=== PATIENT | male | born 1975 | race Caucasian/White ===

== ENCOUNTER 2023-06-25 07:29 | Outpatient (CLI) | payer BC, SELFPAY ==
[2023-06-25 07:44] LABS: Hematocrit 52.8 % (42.0-52.0); Hemoglobin 17.3 g/dL (14.0-18.0); Mean Corpuscular HGB Conc 32.8 g/dl (32-36); Mean Corpuscular Volume 88.6 fl (80-100); Mean Platelet Volume 9.3 fl (7.4-10.4); Platelet Count Result 246 k/mm3 (150-375); Red Blood Count 5.96 M/mm3 (4.6-6.20); Red Cell Distribution Width 12.9 % (11.5-14.5)
[2023-06-25 07:56] LABS: Alanine Aminotransferase 44 U/L (6-50); Albumin Level 4.2 g/dL (3.5-5.1); Alkaline Phosphatase 92 U/L (38-126); Anion Gap 2 mmol/L (8-16); Aspartate Amino Transferase 33 U/L (17-59); Bilirubin,Total 0.9 mg/dL (0.2-1.3); Blood Urea Nitrogen 18 mg/dL (9-20); Calcium 8.9 mg/dL (8.4-10.2); Carbon Dioxide 29 mmol/L (22-30); Chloride 101 mmol/L (98-107); Cholesterol 180 mg/dL (0-200); Estimated Glomerular Filt Rate > 60; Glucose 108 mg/dL (65-110); HDL Direct 39 mg/dL; Potassium 4.4 mmol/L (3.4-5.0); Sodium 132 mmol/L (137-145); Triglycerides 184 mg/dL (<150)
[2023-06-25 08:08] LABS: LDL Cholesterol Direct 97 mg/dL
[2023-06-25 08:26] LABS: Prostate Specific Antigen 0.8 ng/mL (< OR = 4.0)
== END 2023-06-25 07:30 | disposition home or self-care (01) ==
LOC: ANHLAB 07:31
PROVIDERS: PCP Family Medicine; Visit Provider Nurse Practitioner Family
DX: Z12.5 Encounter for screening for malignant neoplasm of prostate (principal); I10 Essential (primary) hypertension; R74.8 Abnormal levels of other serum enzymes; Z13.29 Encounter for screening for other suspected endocrine disorder
CPT/HCPCS: 36415; 80053; 80061; 84153; 84443; 85027

== ENCOUNTER 2024-03-20 11:05 | Observation (INO) | payer BC, SELFPAY ==
[2024-03-20] VITALS (14 sets, daily range): BP systolic 136–175; BP diastolic 83–127; PULSE 72–108; RESP 13–98; TEMP 35.6–36.8; O2SAT 20–100; BMI 42.4
--- NOTE | ~2024-03-20 | CT_ITS ---
CTA chest PE protocol Ordering provider: Jamal Avila MD History: 49 years Male with . Dyspena on exertion, new afib . Comparison: None. Technique: CT angiogram chest was performed following timed intravenous injection of contrast. Thin s lice axial images and reformatted coronal images were obtained. Three dimensional reformatted images of the chest were also obtained using a [employer] workstation. . Automated exposure control and iterati ve reconstruction technique were employed. The dose-length product was 1030.74 mGy-cm. 100 ML Omnipaq ue 350 was given IV. Findings: PULMONARY ARTERIES: No pulmonary embolism. VISUALIZED THORACIC INLET: Normal. MEDIASTINUM: Aorta/coronary arteries: The thoracic aorta is normal. Heart/other: The heart is not enlarged. Lymph nodes: Right hilar lymphadenopathy. Soft tissue density seen adjacent to the aortic arch which is not seen before and mesentery is present hematoma or lymphatic infiltration. This area measures 1 cm in thickness. LUNGS: No pulmonary nodules or masses. No infiltrates or effusions. No pneumothorax. Dependent atelectatic c hanges VISUALIZED UPPER ABDOMEN: , the visualized upper abdomen is normal. MUSCULOSKELETAL: Soft tissues: The superficial soft tissues are normal. Bones: Age appropriate degenerative changes of the spine. IMPRESSION: 1. No pulmonary embolism. 2. Right hilar lymphadenopathy 3. Prevascular soft tissue density which may be a hematoma or lymphatic infiltrate. Clinical correla tion and follow-up advised. Reviewed, dictated and finalized at location A. IMPRESSION: 1. No pulmonary embolism. 2. Right hilar lymphadenopathy 3. Prevascular soft tissue density which may be a hematoma or lymphatic infilt rate. Clinical correlation and follow-up advised.
--- NOTE | ~2024-03-20 | US_ITS ---
EXAMINATION: US venous doppler LE DATE: 03/20/2024 17:06 INDICATION: LE Edema. Elevated dimer . TECHNIQUE: Grayscale images without and with compression and Doppler images of the bilateral lower ex tremity veins were obtained. COMPARISON: None FINDINGS: The right common femoral vein, profunda (deep) femoral vein, femoral vein, popliteal vein, peroneal v ein, posterior tibial veins, and greater saphenous vein are patent. The left common femoral vein, profunda (deep) femoral vein, femoral vein, popliteal vein, peroneal v ein, posterior tibial veins, and greater saphenous vein are patent. IMPRESSION: Patent bilateral lower extremity veins. No evidence of deep venous thrombosis. Reviewed, dictated and finalized at location K.
--- NOTE | ~2024-03-20 | XR_ITS ---
EXAMINATION: XR chest 2V 03/20/2024 12:04 INDICATION: Chest palpitations. Hypertension. PROCEDURE: 2 view chest COMPARISON: Comparison to multiple prior studies sequentially, with oldest reviewed study dated 04/2016. FINDINGS: The lungs are clear. The cardiomediastinal silhouette is within normal limits. There are no pleural effusions. There is no pneumothorax suspected. IMPRESSION: 1: NO ACUTE CARDIOPULMONARY DISEASE. Reviewed, dictated and finalized at location B.
--- NOTE | 2024-03-20 11:07 | ECG_ITS ---
Test Date: 2024-03-20 11:12:43 Measurements Intervals [place] Rate: 87 P: 0 DC: 0 QRS: 52 QRSD: 110 T: 50 QT: 349 QTc: 421 Interpretive Statements ATRIAL FIBRILLATION INCOMPLETE RIGHT BUNDLE BRANCH BLOCK ABNORMAL ECG No previous ECG available for comparison Electronically Signed On 03-20-2024 11:49:41 CDT by Blaine Higginbotham D.O.
[2024-03-20 12:10] LABS: Basophils Percent Auto 0.4 % (0.2-1.2); Eosinophils Absolute Auto 0.2 K/mm3 (0-0.3); Eosinophils Percent Auto 2.5 % (0-4.4); Hematocrit 50.3 % (42.0-52.0); Hemoglobin 16.9 g/dL (14.0-18.0); Immature Granulocyte Absolute 0.03 K/mm3 (0.00-0.031); Immature Granulocyte Percent A 0.4 % (0-0.5); Lymphocytes Absolute Auto 1.51 K/mm3 (0.9-3.2); Lymphocytes Percent Auto 20.7 % (18.3-44.2); Mean Corpuscular HGB Conc 33.6 g/dl (32-36); Mean Corpuscular Hemoglobin 29.4 pg (26-34); Mean Corpuscular Volume 87.5 fl (80-100); Mean Platelet Volume 9.7 fl (7.4-10.4); Monocytes Absolute Auto 0.6 K/mm3 (0.1-0.6); Monocytes Percent Auto 7.5 % (2.6-8.5); Neutrophils Percent Auto 68.5 % (45.5-73.1); Platelet Count Result 198 k/mm3 (150-375); Red Blood Count 5.75 M/mm3 (4.6-6.20); Red Cell Distribution Width 12.9 % (11.5-14.5); White Blood Count 7.3 K/mm3 (4.5-10.0)
[2024-03-20 12:19] LABS: Alanine Aminotransferase 52 U/L (6-50); Albumin Level 4.2 g/dL (3.5-5.1); Alkaline Phosphatase 73 U/L (38-126); Anion Gap 9 mmol/L (4-12); Aspartate Amino Transferase 33 U/L (17-59); Bilirubin,Total 1.1 mg/dL (0.2-1.3); Blood Urea Nitrogen 14 mg/dL (9-20); Calcium 8.7 mg/dL (8.4-10.2); Carbon Dioxide 27 mmol/L (22-30); Chloride 100 mmol/L (98-107); Estimated CRCL calculation 185 ml/min; Estimated Glomerular Filt Rate > 60; Glucose 150 mg/dL (65-110); Lipase 49 U/L (23-300); Potassium 3.8 mmol/L (3.4-5.0); Sodium 136 mmol/L (137-145)
[2024-03-20 12:30] LABS: INR 1.1; Prothrombin Time 14.3 Seconds (11.1-14.7); Troponin I < 0.012 ng/mL (0.000-0.034)
[2024-03-20 12:31] LABS: Partial Thromboplastin Time 30.5 Seconds (22.3-36.8)
[2024-03-20 14:06] LABS: D Dimer 2.19 ug/mL (<0.48)
[2024-03-20 14:13] LABS: Amphetamine Screen Urine Negative (Negative); Barbiturate Screen Urine Negative (Negative); Benzodiazepines Screen Urine Negative (Negative); Cannabinoid Screen Urine Negative (Negative); Cocaine Screen Urine Negative (Negative); Methadone Screen Urine Negative (Negative); Opiate Screen Urine Negative (Negative); Phencyclidine Screen Urine Negative (Negative)
[2024-03-20 14:22] LABS: NT Pro B Type Natriuretic Pept 654 pg/mL (19.9-100)
[2024-03-20 14:50] LABS: Troponin I < 0.012 ng/mL (0.000-0.034)
[2024-03-20] MEDS: dilTIAZem HCl INJ 25 MG/5 ML VIAL 10 MG IV PUSH (16:02)
--- NOTE | 2024-03-20 16:03 | ED.GENADULT ---
HPI - General Adult General Chief complaint: Arrhythmia/Palpitations Stated complaint: SOB, hypertension, irregular HR Time Seen by Provider: 03/20/24 11:53 History of Present Illness HPI narrative: This is a 49-year-old male presenting with chest tightness, palpitations and dyspnea on exertion for last several days. Patient also notes that he has had worsening lower extremity edema. He was seen at his primary care office earlier today but then was sent to the ED because of an irregular heart rate. Patient denies fevers chills, productive cough, risk factors for DVT/PE or heart failure. Related Data Allergies Allergy/AdvReac Type Severity Reaction Status Date / Time hydrocodone AdvReac Unknown vomiting Verified 03/20/24 11:10 [facility] Past Medical History Medical History Atrial fibrillation Screening for prostate cancer Screening for thyroid disorder Family History Family History Mother Diabetes mellitus Family history of coronary artery disease Father Diabetes mellitus Family history of chronic obstructive pulmonary disease Family history of emphysema Sibling Lung cancer Social History Social History Smoking status: Never smoker Second hand tobacco smoke exposure: No Alcohol intake: never Substance use: never Substance use type: does not use Lack of Transportation: No Lack of Food: Never True Current Housing: I Have Housing Concerned About Future Housing: No Difficulty Paying Gas/Electric Bills: No Difficulty Paying for Meds: No Currently Unemployed: No Education: High School Diploma/GED Difficulty w/ Childcare or Family Care: No Living arrangements: with family Occupation/Education: occupation Additional occupation/education comments: [employer] Gender identity (if verbalized by the patient): Male Exam Narrative: APPEARANCE: No apparent distress. Head: atraumatic. EYES: EOMI, NOSE: Atraumatic NECK: Trachea midline RESPIRATORY: Tachypneic, clear lung sounds, no oxygen requirements CARDIOVASCULAR: Irregular, rapid, +1-2 pitting edema of the legs left worse than right ABDOMINAL: Non-distended MUSCULOSKELETAl: No obvious deformities NEURO: Alert. Moving 4/4 extremities SKIN:: Warm, dry. Normal color PSYCHIATRIC: Normal affect Course Vital Signs Vital signs: Vital Signs Temperature 97.8 F 03/20/24 11:08 Pulse Rate 108 H 03/20/24 11:08 Respiratory Rate 20 03/20/24 11:08 Blood Pressure 175/126 H 03/20/24 11:08 Pulse Oximetry 100 03/20/24 11:08 Oxygen Delivery Room Air 03/20/24 11:08 Temperature 98.0 F 03/20/24 15:30 Pulse Rate 88 03/20/24 15:30 Respiratory Rate 16 03/20/24 15:30 Blood Pressure 154/108 H 03/20/24 15:30 Pulse Oximetry 100 03/20/24 15:30 Oxygen Delivery Room Air 03/20/24 11:08 Medical Decision Making MDM Narrative Medical decision making narrative: -Course: 49-year-old male presenting with palpitations, chest tightness and dyspnea on exertion. Found to be in AFib with a rate ranging from 90-120. Patient given 1 dose of diltiazem with improvement in heart rate. D-dimer elevated 2.13. CT PE without evidence of pulmonary embolism. A soft tissue density was noted next to the aorta although this is of undetermined etiology or significance. Venous duplex of the legs are pending. Chads Vasc of 1. Patient given Lovenox. Patient has new onset atrial fibrillation. Patient be admitted to the hospital for Cardiology evaluation. -DDX includes but is not limited to: AFib, CHF, PE, pneumonia viral syndrome -Co-morbidities complicating care: Hypertension -Independent interpretation of studies: Labs reviewed Troponin undetectable x2. BNP 650. Dimer elevated at 2.2. CT PE: 1. No pulmonary embolism. 2. Right hilar lymphadenopathy
[2024-03-20] MEDS: ENOXAPARIN 40 MG/0.4 ML SYRINGE SUB-Q (17:40)
[2024-03-20] MEDS: ENOXAPARIN 100 MG/ML SYRINGE SUB-Q (17:40)
[2024-03-20 17:44] LABS: Troponin I 0.017 ng/mL (0.000-0.034)
--- NOTE | 2024-03-20 17:45 | PM.IMHP ---
H&P: HPI History of Present Illness Date/Time: 03/20/24 18:00 Chief Complaint: Irregular heart rhythm. Narrative: This is a pleasant 49-year-old male with hypertension, hyperlipidemia, transient atrial fibrillation in August 2019, obstructive sleep apnea intolerant to CPAP, morbid obesity, kidney stones, and gout who presented to the emergency department for evaluation of an irregular heart rhythm. The patient provides the following history. He has been out of his blood pressure medication for 2 months and had a standing appointment with his primary care provider yesterday to get it restarted. He was prescribed amlodipine 5 mg daily and was also given Augmentin for suspected dermatitis with possible underlying infection. He was previously on lisinopril but did not tolerated due to cough. Over the course of the last several days he has become increasingly fatigued with shortness of breath on exertion and occasional lightheadedness when bending over. These symptoms seem to have gotten worse since he restarted the medication yesterday and he went back to the office today for a blood pressure check. At that time his blood pressure was 150/90 and he was found to be in irregular heart rhythm and thus he was directed to the ED. He has no sensations of racing heart or palpitations and does not feel the heart beating irregularly. He endorses mild lower extremity edema. He denies fever, chills, sweats, chest and pleuritic pain, orthopnea, paroxysmal nocturnal dyspnea, nausea, vomiting, sweats, and calf pain. He does not drink alcohol or caffeine. No known history of thyroid disease. Reports a strong family history of atrial fibrillation, and fact his older brother had a pacemaker placed not long ago. In the ED: He was afebrile on arrival. Blood pressures have been as high as 175/126. Heart rate was 108 with a rhythm of atrial fibrillation. Labs are significant for WBC count of 7.3, D-dimer 2.19, sodium 136, creatinine 0.60, glucose 150, proBNP 654, troponin less than 0.012, TSH 1.680. Urine drug screen was negative. Lower extremity venous Doppler ultrasounds were negative for DVT. CTA of the chest showed no pulmonary embolism, right hilar lymphadenopathy, and prevascular soft tissue density adjacent to the aortic arch which may be hematoma or lymphatic infiltrate. He was given 10 mg IV diltiazem with improvement in his heart rate and blood pressure. He is being admitted in this setting for further workup. Review of Systems Review of Systems: 12 systems were reviewed and are negative except for as per HPI. [facility] Past Medical History Medical History (Updated 03/20/24 @ 21:43 by Zelda Licea PA-C) Essential hypertension Gout Kidney stones Mixed hyperlipidemia Morbid obesity Obstructive sleep apnea Transient atrial fibrillation (08/2019) Surgical History Surgical History (Updated 03/20/24 @ 21:44 by Zelda Licea PA-C) History of cystoscopy History of lithotripsy History of open reduction and internal fixation (ORIF) procedure Repair of jaw fracture. History of partial knee replacement Left. History of ureter stent Family History Family History Mother Diabetes mellitus Family history of coronary artery disease Father Diabetes mellitus Family history of chronic obstructive pulmonary disease Family history of emphysema Sibling Lung cancer Social History Social History (Updated 03/20/24 @ 21:44 by Zelda Licea PA-C) Social History: Surrogate medical decision maker: Kirstin Castaneda, spouse. Code status: Full code. Smoking status: Never smoker Second hand tobacco smoke exposure: No Alcohol intake: never Substance use: never Substance use type: does not use Do You Feel Safe in your Home?: Yes Lack of Transportation: No Lack of Food: Never True Current Housing: I Have Housing Concerned About Future Housing: No Difficulty Payin
--- NOTE | 2024-03-20 18:19 | PC.NURSE ---
This patient, John Castaneda, was admitted to [address] [place] [address] Room 321-02 at 16:10. Patient/family oriented to hospital policies and general routines including ID bracelet, bed and alarms, visiting hours, pain management, procedures, bathroom and other care routines, personal items, smoking policy, room service/diet, and visiting hours. Information on how to activate the Rapid Response Team has been discussed. Patient/Family are encouraged to report perceived risks to care and to ask questions if they do not understand what they are told or what they should do.
[2024-03-20] MEDS: carvediloL 6.25 MG TABLET PO (20:31)
[2024-03-20] MEDS: allopurinoL 100 MG TABLET BY MOUTH (22:49)
[2024-03-20] MEDS: AMOXICILLIN/CLAVULANATE K 875-125 MG TAB 1 TABLET PO (22:50)
[2024-03-20] MEDS: NAPROXEN 500 MG TABLET PO (23:59)
[2024-03-21] VITALS (10 sets, daily range): BP systolic 118–145; BP diastolic 85–100; PULSE 73–101; RESP 16–20; TEMP 35.7–36.8; O2SAT 95–98
[2024-03-21 06:36] LABS: Anion Gap 9 mmol/L (4-12); Blood Urea Nitrogen 13 mg/dL (9-20); Calcium 8.6 mg/dL (8.4-10.2); Carbon Dioxide 27 mmol/L (22-30); Chloride 100 mmol/L (98-107); Cholesterol 168 mg/dL (0-200); Estimated CRCL calculation 183 ml/min; Estimated Glomerular Filt Rate > 60; Glucose 105 mg/dL (65-110); HDL Direct 29 mg/dL; Magnesium 1.8 mg/dL (1.6-2.3); Potassium 4.2 mmol/L (3.4-5.0); Sodium 136 mmol/L (137-145); Triglycerides 435 mg/dL (<150)
[2024-03-21 06:43] LABS: Hemoglobin A1C 5.7 % (<5.7)
[2024-03-21 06:47] LABS: LDL Cholesterol Direct 82 mg/dL
[2024-03-21] MEDS: AMOXICILLIN/CLAVULANATE K 875-125 MG TAB 1 TABLET PO ×2 (09:20→20:03)
[2024-03-21] MEDS: amLODIPine BESYLATE 5 MG TABLET PO (09:20)
[2024-03-21] MEDS: allopurinoL 100 MG TABLET BY MOUTH ×2 (09:21→20:03)
[2024-03-21] MEDS: carvediloL 6.25 MG TABLET PO (09:21)
[2024-03-21] MEDS: PERFLUTREN LIPID MICROSPHERES 1.5 ML VIAL DILUTED TO 10 ML TOTAL VOLUME IV PUSH (09:31)
--- NOTE | 2024-03-21 09:31 | IVDEFINITY ---
Prior to administration of IV Definity the patient was educated on the risks and benefits of the imaging enhancing agent including potential adverse side effects. The patient verbalized understanding. Allergies were verified. No exclusion criteria were identified and at least one of the following inclusion criteria were met: 1) physician request, 2) patient technically difficult to image (per the [place] [employer]chocardi[employer] guidelines of two or more segments not discernable within the apical view), or 3) questionable left ventricular function. ?
[2024-03-21] MEDS: NAPROXEN 500 MG TABLET BY MOUTH ×2 (09:37→20:03)
--- NOTE | 2024-03-21 11:03 | PM.CNCAR ---
Assessment and Plan Assessment and plan (1) Paroxysmal atrial fibrillation: Code(s): I48.0 - Paroxysmal atrial fibrillation Status: Acute Assessment and Plan: Tele shows atrial fibrillation, rate controlled for the most part, occasional elevated heart rates. Will increase his Coreg to 12.5mg BID. Echo completed this morning, read pending. [id number] of 1. Does not need anticoagulation at this time. Okay to discharge home from my standpoint. Patient will follow up with Dr. Ellis with [facility]. (2) Essential hypertension: Code(s): I10 - Essential (primary) hypertension Status: Acute Assessment and Plan: Blood pressures are improved this morning. Continue Amlodipine 5mg once daily. Coreg 12.5mg BID. Further optimization of hypertension can be done as outpatient. (3) Mixed hyperlipidemia: Code(s): E78.2 - Mixed hyperlipidemia Status: Acute Assessment and Plan: LDL 82. (4) Obstructive sleep apnea: Code(s): G47.33 - Obstructive sleep apnea (adult) (pediatric) Status: Acute Assessment and Plan: Intolerant to CPAP. Plan Recommendations and plan discussed with Hospitalist. History of Present Illness History of Present Illness Consult date/time: 03/21/24 11:03 Requesting physician: Jamal Avila MD Consult reason: atrial fibrillation Reason For Visit: a fib Narrative: We are consulted for atrial fibrillation. This is a 49 year old male with known paroxysmal atrial fibrillation ([id number] of 1 for hypertension), hypertension, hyperlipidemia, obstructive sleep apnea intolerant to CPAP, morbid obesity who presented to the ED from his primary care office for an irregular heart beat. Patient has been feeling weak and tired over the past few days. He has been out of his blood pressure medications for about a month now. In the ED, blood pressure noted to be as high as 175/126mmHg. EKG showed atrial fibrillation, rate controlled. In the ED, heart rates ranged from the 90s to 120s. Given 1 dose of IV Diltiazem with improvement in heart rate. D-dimer noted to be elevated at 2.13. Chest CT was negative for PE, showed right hilar lymphadenopathy, prevascular soft tissue density which may be a hematoma or lymphatic infiltrate. Patient started on low dose Coreg for rate control and for hypertension. Patient feels much better today. Tele shows atrial fibrillation, rate controlled for the most part, occasional elevated heart rates. Review of Systems Review of Systems: All systems reviewed & are unremarkable except as noted in HPI and below (HPI) [facility] Past Medical History Medical History Essential hypertension Gout Kidney stones Mixed hyperlipidemia Morbid obesity Obstructive sleep apnea Transient atrial fibrillation (08/2019) Surgical History Surgical History History of cystoscopy History of lithotripsy History of open reduction and internal fixation (ORIF) procedure Repair of jaw fracture. History of partial knee replacement Left. History of ureter stent Family History Family History Mother Diabetes mellitus Family history of coronary artery disease Father Diabetes mellitus Family history of chronic obstructive pulmonary disease Family history of emphysema Sibling Lung cancer Social History Social History Social History: Surrogate medical decision maker: Kirstin Meeksprafulshon, spouse. Code status: Full code. Smoking status: Never smoker Second hand tobacco smoke exposure: No Alcohol intake: never Substance use: never Substance use type: does not use Do You Feel Safe in your Home?: Yes Lack of Transportation: No Lack of Food: Never True Current Housing: I Have Housing Concerned About Future Housing: No Di
[2024-03-21] MEDS: APIXABAN 5 MG TABLET PO ×2 (12:51→20:02)
[2024-03-21] MEDS: SACUBITRIL/VALSARTAN 24-26 MG TABLET 1 TAB PO ×2 (12:51→20:03)
--- NOTE | 2024-03-21 18:02 | ECHO_ITS ---
Patient Info Name: John Castaneda Age: 49 years : 1975 Gender: Male Ht: 72 in Wt: 313 lbs BSA: 2.75 m2 HR: 94 bpm BP: 118 / 85 mmHg Heart Rhythm: Atrial Fibrillation Technical Quality: Fair Exam Date: 03/21/2024 8:23 AM Exam Location: Echo Lab Patient Status: Inpatient Admit Date: 03/20/2024 Staff Ordering Physician: Zelda Licea PA-C Clinical Informatics Spec: Manuel Lewis RDCS Attending Provider: Lewis Dawson MD Referring Physician: Anuja PAYTON; Exam Type: CA echo dop color flow w con Study Info Indications - soft tissue density by aortic arch - new onset Afib Complete two-dimensional, color flow and Doppler transthoracic echocardiogram is performed with contrast to opacify the left ventricle and to improve the deliniation of the left ventricle endocardial borders. Contrast/Agitated Saline Contrast/Ag. Saline: Definity Amount: 4.00 ml Existing IV Access: Yes Summary 1. Technically difficult study. 2. Left ventricular chamber dimension is normal. 3. Left ventricular systolic function is mildly reduced, estimated at 40-45%. 4. There is mildly increased left ventricular wall thickness. 5. Right ventricular chamber dimension is normal. 6. Right ventricular systolic function is reduced. 7. There is mild mitral valve regurgitation. 8. There is mild tricuspid valve regurgitation. Left Ventricle Left ventricular chamber dimension is normal. Left ventricular systolic function is mildly reduced, estimated at 40-45%. There is mildly increased left ventricular wall thickness. Right Ventricle Right ventricular chamber dimension is normal. Right ventricular systolic function is reduced. Left Atria Left atrial chamber dimension is normal. Right Atria Right atrial chamber dimension is normal. Atrial Septum Intact interatrial septum visualized by color flow imaging. Aortic Valve There is no aortic valve stenosis. There is no aortic valve regurgitation. Pulmonic Valve The pulmonic valve is not well visualized. Mitral Valve There is mild mitral valve regurgitation. Tricuspid Valve There is mild tricuspid valve regurgitation. Pericardium/Pleural The pericardium appears epicardial fat pad. There is no pericardial effusion. Inferior Vena Cava Dilated inferior vena cava with <50% collapse upon inspiration consistent with elevated right atrial pressure, 15 mmHg. Aorta The aortic root size at the sinus of Valsalva is normal. Left Ventricular Outflow Tract Name Value Normal LVOT 2D LVOT Diameter 2.05 cm LVOT Doppler LVOT Peak Gradient 5 mmHg LVOT Mean Gradient 2 mmHg LVOT VTI 16.86 cm LVOT VTI/AV VTI Ratio 1.20 LVOT Stroke Volume 55.59 ml LVOT CO 5.02 l/min LVOT CI 1.82 L/min/m2 Mitral Valve Name Value Normal MV Doppler
--- NOTE | 2024-03-21 18:36 | PM.DS ---
DS: Admitting Diagnosis Discharge Date 03/21/24 Admitting Diagnosis Irregular heart rhythm DS: Discharge Diagnosis Discharge Diagnosis (1) Atrial fibrillation, new onset: Code(s): I48.91 - Unspecified atrial fibrillation Status: Deleted (2) Abnormal CT of the chest: Code(s): R93.89 - Abnormal findings on diagnostic imaging of other specified body structures Status: Acute (3) Hyperglycemia: Code(s): R73.9 - Hyperglycemia, unspecified Status: Acute (4) Obstructive sleep apnea: Code(s): G47.33 - Obstructive sleep apnea (adult) (pediatric) Status: Acute (5) Essential hypertension: Code(s): I10 - Essential (primary) hypertension Status: Acute (6) Mixed hyperlipidemia: Code(s): E78.2 - Mixed hyperlipidemia Status: Acute (7) Morbid obesity: Code(s): E66.01 - Morbid (severe) obesity due to excess calories Status: Acute DS: Summary Hospital Course Reason for hospitalization: 49yo male with hypertension, hyperlipidemia, transient atrial fibrillation in August 2019, obstructive sleep apnea intolerant to CPAP, morbid obesity, kidney stones, and gout who presented to the emergency department for evaluation of an irregular heart rhythm. Please see H&P for details. Hospital Course: The patient presented to the emergency department from his doctor's office after he was found to be in an irregular heart rhythm. EKG showing AFib with incomplete Rt BBB. He was in rapid atrial fibrillation on arrival but his rate improved after receiving diltiazem 10 mg IV. He had transient atrial fibrillation when hospitalized in August 2019 with pneumonia but to his knowledge it has not recurred. Also with fatigue and SOB. His sleep apnea is untreated and he reports that he will never be able to tolerate wearing a CPAP. He does not use alcohol or drink caffeine. UDS negative. UA clear. Troponin negative x3. BNP 654. Chol 168 with LDL 82, HDL 29 and TG 435. TSH was normal. Echo showing EF 40-45% with reduced RV systolic function and mild valvular disease. Septum intact. He was started on carvedilol. He received enoxaparin in the ED and transitioned to Eliquis. Cardiology was consulted. DDimer was positive. LE venous doppler was negative for DVT. CTA Chest shows no PE but right hilar lymphadenopathy and a prevascular soft tissue density (hematoma vs lymphatic infiltrate). Hematoma seems unlikely as he has not had any trauma. Random glucose was 150 but A1c 5.7. The importance of weight loss and making healthier choices was discussed and he reports that he was just started on Wegovy and is hopeful that he will be able to drop some weight. Explained that Naproxen isn't ideal since can cause gastric ulcers and gastritis specially since on Elquis now. Recommended changing to Tylenol for pain. Medications adjusted. He overall did well and was able to be discharged home on 03/21/24. Discussed CTA findings with radiology. he felt unlikely hematoma since no trauma, no sternal or other fractures and no extravasation. More likely a lymph node and he has the right hilar adenopathy as well (or part of thymus but felt less likely). Discussed these findings with the patient and family. Recommended he continue the Elquis but we did do shared decision making and he was comfortable with this. He was educated about the signs and symptoms of aortic tear. Risks of Eliquis discussed at length and all questions answered. Status at Discharge Cognitive/behavioral status at discharge: stable Time Spent with Patient Time attestation: Total time spent providing and/or coordinating discharge services: 40 minutes Time spent: Greater than 30 minutes Exam Narrative: AF 97.3 131/90 85 18 98% ra Gen - NARD Chest - CTA bilaterally, nml RR CV - irregularly irregular. Tele showing AFib with controlled rate Abd - Soft, NT/ND, Positive BS Ext - No pedal edema Psych - Nml mood and affect Skin
[2024-03-21] MEDS: carvediloL 12.5 MG TABLET PO (20:03)
== END 2024-03-21 20:10 | disposition home or self-care (01) ==
LOC: ANHED 16:13 → ANH3MEDSUR 03-21 18:55
PROVIDERS: Physician Assistant; Admitting Provider Internal Medicine; Emergency Provider Emergency Medicine; PCP Family Medicine; Visit Provider Internal Medicine
DX: I48.0 Paroxysmal atrial fibrillation (principal); R07.89 Other chest pain; R60.0 Localized edema; R73.9 Hyperglycemia, unspecified; R93.89 Abnormal findings on diagnostic imaging of other specified body structures; I08.1 Rheumatic disorders of both mitral and tricuspid valves; I10 Essential (primary) hypertension; E78.2 Mixed hyperlipidemia; G47.33 Obstructive sleep apnea (adult) (pediatric); M10.9 Gout, unspecified; E66.01 Morbid (severe) obesity due to excess calories; Z68.41 Body mass index [BMI] 40.0-44.9, adult; Z79.85 Long-term (current) use of injectable non-insulin antidiabetic drugs; Z79.899 Other long term (current) drug therapy
CPT/HCPCS: 36415; 71046; 71275; 80048; 80053; 80061; 80307; 83036; 83690; 83735; 83880; 84443; 84484; 85025; 85380; 85610; 85730; 93005; 93970; 96372; 96374; 96375; 99285; A9270; C8929; G0378; J1650; Q9957; Q9967

== ENCOUNTER 2025-03-28 19:52 | Observation (INO) | payer BC, SELFPAY ==
--- NOTE | ~2025-03-28 | CT_ITS ---
EXAMINATION: CTA BRAIN/CAROTID DATE: 03/28/2025 21:16 INDICATION: Headache TECHNIQUE: Computed tomographic angiography (CTA) of the head and neck was performed with 100 mL Omni paque-350 intravenous contrast. Multiplanar reconstructions and maximum intensity projection 3D-recon structions of the carotid arteries and of the intracranial arteries were created by the technologist on a separate workstation. Automated exposure control and iterative reconstruction technique were emp loyed.The dose-length product was 1098.36 mGy-cm. COMPARISON: None. FINDINGS: Carotid arteries: There is suboptimal contrast opacification of the arteries with the peak of the contrast bolus having passed in the venous phase. The degree of opacification however remains sufficient for diagnostic as sessment. Aortic arch and great vessels arising from the arch are normal in caliber with no atheroscl erotic plaque or dissection. There is no evident atherosclerotic plaque with 0% stenosis of the right and left carotid bulbs relative to normal distal artery lumen diameter (NASCET criteria). Cervical s oft tissues are unremarkable. Mild dependent atelectasis in the visualized mid to upper lungs. Cervic al soft tissues are unremarkable. Minimal cervical spondylosis. Intracranial arteries Vertebral arteries are codominant. There is no hemodynamically significant stenosis in the vertebral, basilar and internal carotid arteries. Both A1 and P1 segments are patent. There are no aneurysms id entified. Cerebral arterial arborization appears symmetric. No abnormally enhancing brain lesions. P rominent mucous retention cyst in the left maxillary sinus. IMPRESSION: 1. No evident atherosclerotic plaque with 0% stenosis of the right and left carotid bulbs relative to normal distal artery lumen diameter (NASCET criteria). 2. Unremarkable cerebral CT angiogram with no hemodynamically significant stenosis, aneurysm or throm bosis. Reviewed, dictated and finalized at location A. IMPRESSION: 1. No evident atherosclerotic plaque with 0% stenosis of the right and left car otid bulbs relative to normal distal artery lumen diameter (NASCET criteria). 2. Unremarkable cerebral CT angiogram with no hemodynamically significant steno sis, aneurysm or thrombosis.
--- NOTE | ~2025-03-28 | CT_ITS ---
EXAMINATION: CT brain wo con DATE: 03/28/2025 20:18 INDICATION: Sudden onset headache with vomiting TECHNIQUE: Computed tomography (CT) of the head was performed without intravenous contrast. Sagittal and coronal reconstructions were performed. The mA was adjusted according to patient size. Iterative reconstruction technique was employed. The dose-length product was 756.67 mGy-cm. COMPARISON: None FINDINGS: No acute intracranial hemorrhage, acute infarction or abnormal extra axial fluid collection. There ar e couple small old lacunar infarcts at the bilateral basal ganglia. Ventricles are normal and symmetr ic. No mass/mass effect. Because retention cyst in the left maxillary sinus. The orbits and mastoid a ir cells are normal. IMPRESSION: 1. Small old lacunar infarcts at the bilateral basal ganglia.. No acute intracranial process. Reviewed, dictated and finalized at location A. IMPRESSION: 1. Small old lacunar infarcts at the bilateral basal ganglia.. No acute intracr anial process.
--- NOTE | ~2025-03-28 | MR_ITS ---
EXAM: MR brain/brain stem wo con - 03/29/2025 9:20 CDT HISTORY: 50 years old Male with headache TECHNIQUE: Multiplanar and multisequence MRI of the brain without contrast. COMPARISON: 03/28/2025 FINDINGS: BRAIN PARENCHYMA: No acute infarct or hemorrhage. No mass effect or herniation. Multiple nodular T2 hyperintense foci within the subcortical white matter, which can be associated with migraines but are nonspecific. No s usceptibility artifact on gradient echo images. No cerebellar tonsillar ectopia. No brainstem sag or other secondary signs of intracranial hypotensio n. No empty sella or other secondary signs of elevated intracranial pressure. VENTRICLES / EXTRA-AXIAL SPACES: No hydrocephalus or extra-axial fluid collections. CALVARIUM AND SINUSES: No calvarial lesions are visualized. The visualized sinuses and mastoid air ce lls are clear. FLOW VOID: Intact. OTHER EXTRACRANIAL STRUCTURES: Visualized structures are normal. Mucous retention cyst in the left ma xillary sinus. IMPRESSION: Multiple nodular T2 hyperintense foci within the subcortical white matter, which can be associated wi th migraines but are nonspecific. Alternatively, these can also represent early chronic small vessel ischemic changes. Reviewed, dictated and finalized at location A. IMPRESSION: Multiple nodular T2 hyperintense foci within the subcortical white matter, whic h can be associated with migraines but are nonspecific. Alternatively, these ca n also represent early chronic small vessel ischemic changes.
--- OUTSIDE RECORDS SUMMARY | 2025-03-28 19:55 | XMS_ITS | Clinical Summary ---
Author Organization [facility] Address [address] [address] Care Team Providers Care Sensor Technician Name Role Phone Andrea Moreno MD Primary Care Provider [phone] Source Comments [facility],non-owned Affiliates and Associated Physician Practices is amultiple site organization consisting of ambulatory clinics and hospital sitesin [place], [place], [place] and [place]. This disclosure is being madepursuant to the Care Everywhere program and may not contain all information available regarding this patient. Last updated 18.[facility] Allergies Active Allergy Reactions Criticality Noted Date Comments Hydrocodone-Acetaminophen Unknown Projectile vomiting Medications * Be aware that medications may not be up to date on this document. Alwaysverify current medications with the patient. allopurinol (ZYLOPRIM) 100 MG tablet Take 100 mg by mouth 2 times daily 3 11/13/2017 Active naproxen (NAPROSYN) 500 MG tablet Take 500 mg by mouth 2 times daily 3 11/13/2017 Active Active Problems Problem Noted Date Diagnosed Date Gout 12/13/2017 Knee pain - hx fracture no surgery 12/13/2017 Snoring 12/13/2017 Class 3 severe obesity due t o excess calories with serious comorbidity and body mass index (BMI) of 40.0 to 44.9 in adult 12/13/2017 KALYAN (obstructive sleep apnea ): HSAT CONSTANTINE 15.3, O2 68.8%, 11.5 min O2 <89%, 289 lbs 12/13/2017 Elevated blood pressure read ing without diagnosis of hypertension 12/13/2017 Resolved Problems Problem Noted Date Diagnosed Date Resolved Date Suspected sleep apnea 12/13/20172017 Family History Medical History Relation Name Comments COPD - Chronic Obstructive Pulmonary Disease Father smoker Diabetes - Type 2 Mother Relation Name Status Comments Brother Alive Father Mother Alive Sister 1 Alive Sister 2 Alive Social History Tobacco Use Types Packs/Day Years Used Date Smoking Tobacco: Never Smokeless Tobacco: Never Tobacco Cessation:Counseling Given: No Alcohol Use Standard Drinks/Week Comments No 0 (1 standard drink = 0.6 oz pur e alcohol) Sex and Gender Information Value Date Recorded Sex Assigned at Not on file Legal Sex Male 5:32 AM WOUND CARE SPECIALIST Gender Identity Not on file Sexual Orientation Not on file 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 Not on file Not on file Last Filed Vital Signs Vital Sign Reading Time Taken Comments Blood Pressure 156/96 12/13/2017 3:45 PM CDT Pulse 85 12/13/2017 3:14 PM CDT Temperature - - Respiratory Rate - - Oxygen Saturation 98% 12/13/2017 3:14 PM CDT Inhaled Oxygen Concentration - - Weight 137 kg (302 lb) 12/13/2017 3:14 PM CDT Height 182.9 cm (6') 12/13/2017 3:14 PM CDT Body Mass Index 40.96 12/13/2017 3:14 PM CDT Plan of Treatment Health Maintenance Due Date Last Done Comments COLOGUARD (AGES 45-75) - COL ON CA SCREENING 1975 COLON MONITORING 1975 COLONOSCOPY - COLON CA SCREENING 1975 CT COLONOGRAPHY - COLON CA SCREENING 1975 Colorectal Cancer Screening 1975 FIT - COLON CA SCREENING 1975 FLEX SIG - COLON CA SCREENING 1975 LIPID TESTING 1975 HIV SCREENING 1990 HEPATITIS C SCREENING 01/09/1993 DTAP/TDAP/TD VACCINES (1 - Tdap) 1994 HEPATITIS B VACCINE (1 of 3 - 19+ 3-dose series) 1994 SCREENING FOR DIABETES 12/13/2017 COVID-19 VACCINE (1 - 2023-2 5 season) 2024 DEPRESSION SCREENING 09/05/2024 PNEUMOCOCCAL VACCINE 50+ (1 of 1 - PCV) 2025 ZOSTER VACCINE (1 of 2) 2025 INFLUENZA VACCINE (#1) 2025 HIB VACCINE Aged Out No longer eligi ble based on patient's age to complete this topic HPV VACCINE Aged Out No longer eligi ble based on patient's age to complete this topic MENINGOCOCCAL (Group B) VACC INE SHARED DECISION-MAKING Aged Out No longer eligibl e based on patient's age to complete this topic MENINGOCOCCAL GROUPS A/C/Y/W VACCINE Aged Out No longer eligible b ased on patient's age to complete this topic Care Teams Sensor Technician Relationship Specialty Start Date End Date Andrea Moreno MD [address] [place] [address] PCP - General Family Medicine 12/13/17
--- OUTSIDE RECORDS SUMMARY | 2025-03-28 19:55 | XMS_ITS | Referral Summary ---
Author Organization [facility] [address] Address [address] [place] [address] Care Team Providers Care Research Program Manager Name Role Phone No, Physician Primary Care Provider [phone] Allergies Active Allergy Reactions Criticality Noted Date Comments Hydrocodone-Acetaminop hen Nausea & Vomiting Low 11/13/2018 Projectile vomiting Medications allopurinoL (ZYLOPRIM) 100 mg tablet Take 1 tablet (100 mg total) by mouth 2 (two) times a day Active Entresto 24-26 mg tablet Take 1 tablet by mouth 2 (two) times a day 04/18/2024 Active Eliquis 5 mg tablet Take 1 tablet (5 mg total) by mouth 2 (two) times a day 04/19/2024 Active amLODIPine (NORVASC) 5 mg tablet Take 1 tablet (5 mg total) by mouth daily 03/19/2024 Active amiodarone (PACERONE) 200 mg tabletIndications :Prevention of Recurrent Atrial Fibrillation Take 1 tablet (200 mg total) by mouth 2 (two) times a day 60 tablet 1 06/15/2024 Active Active Problems Problem Noted Date Diagnosed Date Atrial fibrillation and flutter 06/14/2024 A-fib 05/11/2024 Longstanding persistent atrial fibrillation 04/05 Primary hypertension 11/13/2018 Palpitations 11/13/2018 Obesity 11/13/2018 Obstructive sleep apnea syndrome 12/13/2017 Gout 12/13/2017 Knee pain 12/13/2017 Elevated blood pressure read ing without diagnosis of hypertension 12/13/2017 Immunizations Immunization Administration Dates Next Due Tdap 01/09/2022 Social History Tobacco Use Types Packs/Day Years Used Date Smoking Tobacco: Never Smokeless Tobacco: Never AUDIT-C Answer Date Recorded Q1: How often do you have a drink containing alcohol? Never 06/14/2024 Q2: How many drinks containi ng alcohol do you have on a typical day when you are drinking? Patient does not drink Q3: How often do you have si x or more drinks on one occasion? Never 06/14/2024 PHQ-2 Answer Date Recorded PHQ-2 Total Score (If total score is 3 or more points, staff should administer the PHQ-9) 0 04/20/2024 PHQ-9 Answer Date Recorded PHQ-9 Total Score 0 04/20/2024 Personal Safety Answer Date Recorded Have you ever been in or are you currently in a harmful physical or emotional relationship or is someone making you feel afraid or unsafe? 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 Gender Identity Not on file Sexual Orientation Not on file Last Filed Vital Signs Vital Sign Reading Time Taken Comments Blood Pressure 123/77 06/15/2024 7:02 AM CDT Pulse 71 06/15/2024 7:02 AM CDT Temperature 36.4 C (97.5 F) 06/15/2024 7:02 AM CDT Respiratory Rate 17 06/15/2024 7:02 AM CDT Oxygen Saturation 96% 06/15/2024 7:02 AM CDT Inhaled Oxygen Concentration - - Weight 139.3 kg (307 lb) 06/14/2024 6:36 AM CDT Height 182.9 cm (6') 06/14/2024 4:15 PM CDT Body Mass Index 41.64 06/14/2024 6:36 AM CDT Plan of Treatment Not on file Medical Devices Implanted Type Area Chief Investigator Device Identifier Shelf Expiration Date Model / Serial / Lot Other - See Comments Other - see comments Right: Mandible Description:Metal plate to R ight Mandible Other - See Comments Other - see comments Left: Knee Description:Partial Knee Rep lacement Left knee Insurance [facility] BLUE ACCESS [place] BL[place] Advance Directives For more information, please contact: [phone] * Full Code (Latest Code Status on File) Date Activated Date Inactivated Comments 04/20/2024 4:31 PM 04/21/2024 10:06 PM Care Teams Research Program Manager Relationship Specialty Start Date End Date No, Physician PCP - General 08/10/18
--- OUTSIDE RECORDS SUMMARY | 2025-03-28 19:55 | XMS_ITS | Clinical Summary ---
Author Organization [facility] Address [address] [place] [address] Care Team Providers Care Manager Baby Name Role Phone Mary Childs MD Primary Care Provider Social History Tobacco Use Types Packs/Day Years Used Date Smoking Tobacco: Never Assessed Sex and Gender Information Value Date Recorded Sex Assigned at Not on file Legal Sex Male 7:21 PM CDT Gender Identity Not on file Sexual Orientation Not on file Plan of Treatment Health Maintenance Due Date Last Done Comments Colorectal Cancer Screening Colonoscopy (10 Years) 1975 Annual Physical 1978 Hepatitis C 1993 DTaP, Tdap and Td Vaccines ( 1 - Tdap) 1994 Hepatitis B Vaccines (1 of 3 - 19+ 3-dose series) 1994 COVID-19 Vaccine ( - 2023-2 5 season) 2024 Pneumococcal Vaccine: 50+ Ye ars (1 of 1 - PCV) 2025 Zoster Vaccines (1 of 2) 2025 Meningococcal B Vaccine Aged Out No l onger eligible based on patient's age to complete this topic Meningococcal Vaccine Aged Out No kailyn dewey eligible based on patient's age to complete this topic RSV Immunizations Under 20 Months Aged Out No longer eligible based on patient's age to complete this topic Insurance [employer] Care Teams Manager Baby Relationship Specialty Start Date End Date Mary Childs MD [address] [place] [address] PCP - General 10/26/13
--- OUTSIDE RECORDS SUMMARY | 2025-03-28 19:55 | XMS_ITS | Clinical Summary ---
Author Organization [facility] [address] Address [address] [place] [address] Care Team Providers Care Mechanic Assistant Name Role Phone No, Physician Primary Care Provider Allergies Active Allergy Reactions Criticality Noted Date [...] Immunization Administration Dates Next Due Tdap 01/09/2022 Surgical History Surgery Date Site/Laterality Comments MANDIBLE FRACTURE SURGERY 09/05/1992 - 09/04/1993 metal plate CARDIOVERSION 05/06/2024 - 06/04/2024 PARTIAL KNEE ARTHROPLASTY 02/03/2023 - 03/04/2023 Left KIDNEY STONE SURGERY Medical History Medical History Date Comments Atrial fibrillation (HCC) Gout KALYAN (obstructive sleep apnea) Hypertension Kidney stone Gout Atrial fibrillation with RVR (HCC) 04/2024 Chest pain 04/2024 [facility] ED, c/o CP, SOB, palpitations, fatigue, dizziness Family History Medical History Relation Name Comments COPD Father Cancer Father Diabetes Father Diabetes Mother polio Mother Relation Name Status Comments Father Mother Alive Social History Tobacco Use Types Packs/Day [...] on file Legal Sex Male 10:49 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 Gender Identity Not on file Sexual Orientation Not on file Obstetrics History Last Filed Vital Signs Vital Sign Reading [...] 06/14/2024 6:36 AM CDT Plan of Treatment Health Maintenance Due Date Last Done Comments Colon Cancer Screening-Colonoscopy 1975 Hepatitis C Screening 1975 Prostate Cancer Screening-PSA 1975 Hepatitis B Screening 1993 Regular Well Visit/Exam 18-64 1993 Zoster Vaccine (1 of 2) 2025 Depression Screening 04/20/2025 04/20/2024, 04/20/2024 Influenza Vaccine (#1) 2025 08/10/2018 DTaP/Tdap/Td Vaccine (3 - Td or Tdap) 01/10/2032 01/09/2022, 02/12/2021 Pneumococcal vaccine <65 Aged Out No longer eligible based on patient's age to complete this topic Medical Devices Implanted Type Area Travel Professional Device Identifier Shelf Expiration Date Model / Serial / Lot Other - See Comments Other - see comments Right: Mandible Description:Metal plate to R ight Mandible Other - See Comments Other - see comments Left: Knee Description:Partial Knee Rep lacement Left knee Insurance [facility] H[employer] [place] [employer] [place] [employer] [place] Advance Directives For more information, please contact: [phone] * Full Code (Latest Code Status on File) Date Activated Date Inactivated Comments 04/20/2024 4:31 PM 04/21/2024 10:06 PM Care Teams Mechanic Assistant Relationship Specialty Start Date End Date No, Physician PCP - General 08/10/18
[2025-03-28 19:57] VITALS: BP 160/98; PULSE 86; RESP 20; O2SAT 100
[2025-03-28 20:00] VITALS: BP 160/98; PULSE 86; RESP 20; TEMP 35.8; O2SAT 100
--- NOTE | 2025-03-28 20:24 | ED_ITS ---
HPI - Headache General Chief Complaint: Headache Stated Complaint: High BP-headache Time Seen by Provider: 03/28/25 20:17 Source: patient Mode of arrival: ambulatory Limitations: no limitations History of Present Illness HPI Narrative: 50-year-old male presenting to emergency department for chief complaint of headache. Started abruptly at 4:00 p.m.. He also had a few episodes of vomiting. Headache is frontal. Does not interrupt his vision. said he is not speaking very much since the headache started and looks pale Related Data Home Medications ?Medication ?Instructions ?Recorded ?Confirmed ?Last Taken ?Type amiodarone 200 mg tablet mg PO DAILY 05/17/24 Unknown History flecainide 100 mg tablet mg PO ONCE 05/17/24 Unknown History magnesium oxide 400 mg (241.3 mg mg PO BID 05/17/24 Unknown History magnesium) tablet Allergies Allergy/AdvReac Type Severity Reaction Status Date / Time hydrocodone AdvReac Unknown vomiting Verified 03/28/25 20:00 Review of Systems 2 Review of Systems: All systems reviewed & are unremarkable except as noted in HPI and below (HPI) [facility] Past Medical History Medical History Transient atrial fibrillation (08/2019) Morbid obesity Obstructive sleep apnea Gout Kidney stones Essential hypertension Mixed hyperlipidemia Surgical History Surgical History History of open reduction and internal fixation (ORIF) procedure Repair of jaw fracture. History of partial knee replacement Left. History of lithotripsy History of ureter stent History of cystoscopy Family History Family History Mother Diabetes mellitus Family history of coronary artery disease Father Diabetes mellitus Family history of chronic obstructive pulmonary disease Family history of emphysema Sibling Lung cancer Social History Social History Social History: Surrogate medical decision maker: Kirstin Castaneda, spouse. Code status: Full code. Smoking status: Never smoker Second hand tobacco smoke exposure: No Alcohol intake: never Substance use: never Substance use type: does not use Do You Feel Safe in your Home?: Yes Lack of Transportation: No Lack of Food: Never True Current Housing: I Have Housing Concerned About Future Housing: No Difficulty Paying Gas/Electric Bills: No Difficulty Paying for Meds: No Currently Unemployed: No Education: Decline to Answer Difficulty w/ Childcare or Family Care: No Living arrangements: with family Additional living arrangements comments: Lives with spouse in [place]. 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 Spiritual care concerns: No Exam 2 Narrative: Constitutional: Uncomfortable appearing Head: Atraumatic, no deformities. Eyes: Pupils equal, round, and reactive to light. Neck: Supple, no tracheal deviation, no JVD. ENMT: Mucous membranes moist Cardiovascular: S1, S2 auscultated. No murmurs, rubs, or gallops. No S3/S4. Normal Distal pulses. No peripheral edema. Respiratory: Lung sounds equal. No wheezes, rales, or rhonchi. Gastrointestinal: Abdomen was soft and non-tender. Non-distended. No rebound or guarding. Genitourinary: Deferred Musculoskeletal: Normal muscle tone and bulk. No obvious deformities or tenderness over extremities. Skin: No rashes. Neurological: Strength 5/5 in extremities. Cranial nerves I-XII grossly intact. Distal sensation intact. Mental Status: Awake, alert and oriented x3. Follows commands Course Vital Signs Vital signs: Vital Signs Pulse Rate 86 03/28/25 19:57 Respiratory Rate 20 03/28/25 19:57 Blood Pressure 160/98 H 03/28/25 19:57 Pulse Oximetry 100 03/28/25 19:57 Oxygen Delivery Room Air 03/28/25 19:57 Temperature 35.8 C L 03/28/25 20:00 Pulse Rate 86 03/28/25 20:00 Respiratory Rate 20 03/28/25 20:00 Blood Pressure 160/98 H 03/28/25 20:00 Pulse Oximetry 100 03/28/25 20:00 Oxygen Delivery Room Air 03/28/25 19:57 MDM - Headache MDM Narrative Medical decision making narrative: Patient presenting for acute onset headache a 4:00 p.m. today. He has never had headache like this before. Also a few episodes of vomiting. Patient immediately brought back to room, sent for CT imaging of the head to evaluate for intracranial pathology such as hemorrhage, subarachnoid hemorrhage. Slightly hypertensive and appears uncomfortable. IV established given Reglan, Benadryl, fluid bolus obtaining cardiac workup. says he seems like he is confused but to me he does not appear confused, is oriented x3, moving all extremities, just quiet and minimalistic with his responses. We did discuss tPA for possibility of a stroke however he was at the very end of the tPA window when he arrived and his presentation was not consistent quite with a ischemic stroke, hospital than hemorrhagic. Patient and agree with this completely. CT head show some old strokes. Nothing new. CTA head and neck are unremarkable. Patient's headache slightly improved with meds, given a 2nd round. Will admit for intractable headache, potentially for MRI tomorrow, to see Neurology. Patient and family agreeable plan. Spoke with hospitalist. Admitted Lab Data 03/28/25 20:25 03/28/25 20:25 Labs: Lab Results 03/28/25 Range/Units 20:25 WBC 15.4 H (4.5-10.0) K/mm3 RBC 5.98 (4.6-6.20) M/mm3 Hgb 17.3 (14.0-18.0) g/dL Hct 52.8 H (42.0-52.0) % MCV 88.3 (80-100) fl MCH 28.9 (26-34) pg MCHC 32.8 (32-36) g/dl RDW 13.2 (11.5-14.5) % Plt Count 283 (150-375) k/mm3 MPV 8.9 (7.4-10.4) fl Immature Gran % (Auto) 0.6 H (0-0.5) % Neut % (Auto) 81.5 H (45.5-73.1) % Lymph % (Auto) 11.5 L (18.3-44.2) % [place] % (Auto) 6.0 (2.6-8.5) % Eos % (Auto) 0.1 (0-4.4) % Baso % (Auto) 0.3 (0.2-1.2) % Lymph # (Auto) 1.77 (0.9-3.2) K/mm3 [place] # (Auto) 0.9 H (0.1-0.6) K/mm3 Eos # (Auto) 0.0 (0-0.3) K/mm3 Baso # (Auto) 0.0 (0.0-0.1) K/mm3 Abs Immat Gran (auto) 0.10 H (0.00-0.031) K/mm3 Absolute Neuts (auto) 12.6 H (1.3-6.7) K/mm3 Absolute Nucleated RBC 0.000 (0.0-0.012) K/mm3 Nucleated RBC % 0.0 (0.0-0.2) % PT 14.1 (11.1-14.7) Seconds INR 1.1 APTT 34.7 (22.3-36.8) Seconds Sodium 137 (137-145) mmol/L Potassium 4.7 (3.4-5.0) mmol/L Chloride 98 (98-107) mmol/L Carbon Dioxide 27 (22-30) mmol/L Anion Gap 12 (4-12) mmol/L BUN 16 (9-20) mg/dL Creatinine 0.81 (0.7-1.3) mg/dL Estim Creat Clear Calc 136 ml/min Estimated GFR > 60 (59 - ) Glucose 152 H (65-110) mg/dL Calcium 9.6 (8.4-10.2) mg/dL Total Bilirubin 1.0 (0.2-1.3) mg/dL AST 46 (17-59) U/L ALT 66 H (6-50) U/L Alkaline Phosphatase 93 (38-126) U/L Total Protein 7.9 (6.3-8.2) g/dL Albumin 4.6 (3.5-5.1) g/dL Discharge Plan Discharge Clinical Impression: Headache Qualifiers: Headache type: unspecified Headache chronicity pattern: acute headache I ntractability: intractable Qualified Code(s): R51.9 - Headache, unspecified Patient Disposition: Still a Patient Condition: Stable Instructions: Antibiotic Form Patient Language: Citizen Of [place] Prescriptions: No Action amlodipine 5 mg tablet 5 mg PO DAILY Qty: 90 5RF flecainide 100 mg tablet PO ONCE magnesium oxide 400 mg (241.3 mg magnesium) tablet PO BID amiodarone 200 mg tablet PO DAILY Eliquis 5 mg Tablet 5 mg PO Q12HR Qty: 60 1RF carvedilol [Coreg] 12.5 mg Tablet 12.5 mg PO Q12HR Qty: 60 1RF Entresto 24-26 mg Tablet 1 tablet PO Q12HR Qty: 60 1RF pantoprazole [Protonix] 40 mg tablet,delayed release (DR/EC) 40 mg PO QAM Qty: 30 1RF azithromycin [Zithromax] 250 mg tablet See Rx Instructions PO .COMPLEX Qty: 6 0RF Rx Instructions: take 500 mg today (day 1), then 250 mg for 4 days (days 2-5) PO allopurinol 100 mg tablet See Rx Instructions .ROUTE .COMPLEX Qty: 180 0RF Dose Instruction: TAKE 1 TABLET BY MOUTH TWICE A DAY Rx Instructions: TAKE 1 TABLET BY MOUTH TWICE A DAY Follow-up/Referrals: Andrea Moreno MD [Primary Care Provider] - Time of Disposition: 22:08
--- NOTE | 2025-03-28 20:26 | ECG_ITS ---
Test Date: 2025-03-28 20:34:16 Measurements Intervals [place] Rate: 86 P: 49 NM: 225 QRS: 10 QRSD: 96 T: 31 QT: 349 QTc: 418 Interpretive Statements SINUS RHYTHM WITH FIRST DEGREE AV BLOCK POSSIBLE RIGHT VENTRICULAR CONDUCTION DELAY [RSR (QR) IN V1/V2] Compared to ECG 03/20/2024 11:12:43 First degree AV block now present Atrial fibrillation no longer present Electronically Signed On 03-30-2025 18:23:01 CDT by Ritchie Blanca M.D.
[2025-03-28] MEDS: METOCLOPRAMIDE HCL INJ 10 MG/2 ML VIAL IV PUSH (20:30)
[2025-03-28] MEDS: SODIUM CHLORIDE 0.9% IV 1,000 ML 999 ML IV CONT (20:30)
[2025-03-28 20:33] LABS: Hematocrit 52.8 % (42.0-52.0); Hemoglobin 17.3 g/dL (14.0-18.0); Immature Granulocyte Percent A 0.6 % (0-0.5); Lymphocytes Absolute Auto 1.77 K/mm3 (0.9-3.2); Mean Corpuscular HGB Conc 32.8 g/dl (32-36); Mean Corpuscular Hemoglobin 28.9 pg (26-34); Mean Corpuscular Volume 88.3 fl (80-100); Nucleated Red Blood Cells Absolute Auto 0.000 K/mm3 (0.0-0.012); Nucleated Red Blood Cells Perc 0.0 % (0.0-0.2); Platelet Count Result 283 k/mm3 (150-375); Red Blood Count 5.98 M/mm3 (4.6-6.20); White Blood Count 15.4 K/mm3 (4.5-10.0)
[2025-03-28 20:44] LABS: INR 1.1; Prothrombin Time 14.1 Seconds (11.1-14.7)
[2025-03-28 20:45] LABS: Partial Thromboplastin Time 34.7 Seconds (22.3-36.8)
[2025-03-28 20:50] LABS: Alanine Aminotransferase 66 U/L (6-50); Albumin Level 4.6 g/dL (3.5-5.1); Alkaline Phosphatase 93 U/L (38-126); Anion Gap 12 mmol/L (4-12); Aspartate Amino Transferase 46 U/L (17-59); Bilirubin,Total 1.0 mg/dL (0.2-1.3); Blood Urea Nitrogen 16 mg/dL (9-20); Calcium 9.6 mg/dL (8.4-10.2); Carbon Dioxide 27 mmol/L (22-30); Chloride 98 mmol/L (98-107); Estimated CRCL calculation 136 ml/min; Estimated Glomerular Filt Rate > 60; Glucose 152 mg/dL (65-110); Potassium 4.7 mmol/L (3.4-5.0); Sodium 137 mmol/L (137-145); Total Protein 7.9 g/dL (6.3-8.2)
--- OUTSIDE RECORDS SUMMARY | 2025-03-28 20:56 | XMS_ITS | Clinical Summary ---
Author Organization [facility] Address [address] [place] [address] Care Team Providers Care Pusher Runner Name Role Phone Mary Childs MD Primary Care Provider [phone] Social History Tobacco Use Types Packs/Day Years [...] complete this topic Insurance [employer] Care Teams Pusher Runner Relationship Specialty Start Date End Date Mary Childs MD [address], [place] [address] PCP - General 10/26/13
--- OUTSIDE RECORDS SUMMARY | 2025-03-28 20:56 | XMS_ITS | Clinical Summary ---
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 Gender Identity Not on file Sexual Orientation [...] this topic Medical Devices Implanted Type Area Honeycomb Decapper Device Identifier Shelf Expiration Date Model / Serial / Lot Other - See Comments Other - see comments Right: Mandible Description:Metal plate to R ight Mandible Other - See Comments Other - see comments Left: Knee Description:Partial Knee Rep lacement Left knee Insurance [facility] [employer] [place] [place] Advance Directives For more information, please contact: [phone] * Full Code (Latest Code Status on File) Date Activated Date Inactivated Comments 04/20/2024 4:31 PM 04/21/2024 10:06 PM Care Teams Endo Tech Relationship Specialty Start Date End Date No, Physician PCP - General 08/10/18
--- OUTSIDE RECORDS SUMMARY | 2025-03-28 20:56 | XMS_ITS | Clinical Summary ---
Author Organization [facility] Address [address] [place] [address] Care Team Providers Care Lodging Facilities Manager Name Role Phone Andrea Moreno MD Primary Care Provider [phone] Source Comments [facility],non-owned Affiliates and Associated Physician Practices is amultiple site organization consisting of ambulatory clinics and hospital sitesin [place], [place], [place] and [place]. This disclosure is being madepursuant to the Care Everywhere program and may not contain all information available regarding this patient. 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
--- OUTSIDE RECORDS SUMMARY | 2025-03-28 20:56 | XMS_ITS | Referral Summary ---
Author Organization [facility] [place] [address] Address [address] [place] [address] Care Team Providers Care Parts Salesman Name Role Phone No, Physician Primary Care Provider [phone] Allergies Active Allergy Reactions Criticality Noted Date [...] on file Legal Sex Male 10:49 AM TRANSFER PROFESSOR Gender Identity Not on file Sexual Orientation [...] on file Medical Devices Implanted Type Area Air Intelligence Officer Device Identifier Shelf Expiration Date Model / Serial / Lot Other - See Comments Other - see comments Right: Mandible Description:Metal plate to R ight Mandible Other - See Comments Other - see comments Left: Knee Description:Partial Knee Rep lacement Left knee Insurance [facility] BLUE ACCESS OOS BLUE ACCESS ID BLUE ACCESS ID Advance Directives For more information, please contact: [phone] * Full Code (Latest Code Status on File) Date Activated Date Inactivated Comments 04/20/2024 4:31 PM 04/21/2024 10:06 PM Care Teams Parts Salesman Relationship Specialty Start Date End Date No, Physician PCP - General 08/10/18
[2025-03-28] MEDS: ONDANSETRON INJ 4 MG/2 ML VIAL 8 MG IV PUSH (22:17)
[2025-03-28] MEDS: MAGNESIUM SULF 1 GM/D5W 100 ML 1 GM/100 ML BAG IVPB (22:18)
[2025-03-28] MEDS: dexAMETHasone SOD PHOS INJ 10 MG/ML 1 ML VIAL IV PUSH (22:18)
[2025-03-28] MEDS: SODIUM CHLORIDE 0.9% IV 1,000 ML 125 ML IV CONT (23:08)
[2025-03-29] VITALS (13 sets, daily range): BP systolic 115–167; BP diastolic 65–85; PULSE 81–92; RESP 16–18; TEMP 35.9–36.8; O2SAT 95–96; BMI 41.3
[2025-03-29] MEDS: SODIUM CHLORIDE 0.9% IV 1,000 ML 100 ML IV CONT ×2 (01:00→06:39)
--- NOTE | 2025-03-29 01:14 | ADMGEN ---
This patient, John Castaneda, was admitted to [facility] Surg Room 306-02. Patient/family oriented to hospital policies and general routines including ID bracelet, bed and alarms, visiting hours, pain management, procedures, bathroom and other care routines, personal items, smoking policy, room service/diet, and visiting hours. Information on how to activate the Rapid Response Team has been discussed. Patient/Family are encouraged to report perceived risks to care and to ask questions if they do not understand what they are told or what they should do.
[2025-03-29] MEDS: PROCHLORPERAZINE EDISYLATE 10 MG/2 ML VIAL IV PUSH ×2 (02:54→12:23)
[2025-03-29 06:41] LABS: Hematocrit 52.4 % (42.0-52.0); Hemoglobin 17.4 g/dL (14.0-18.0); Immature Granulocyte Percent A 0.6 % (0-0.5); Lymphocytes Absolute Auto 0.81 K/mm3 (0.9-3.2); Mean Corpuscular HGB Conc 33.2 g/dl (32-36); Mean Corpuscular Hemoglobin 29.2 pg (26-34); Mean Corpuscular Volume 87.9 fl (80-100); Nucleated Red Blood Cells Absolute Auto 0.000 K/mm3 (0.0-0.012); Nucleated Red Blood Cells Perc 0.0 % (0.0-0.2); Platelet Count Result 280 k/mm3 (150-375); Red Blood Count 5.96 M/mm3 (4.6-6.20); White Blood Count 11.2 K/mm3 (4.5-10.0)
--- NOTE | 2025-03-29 06:54 | P.HP_ITS ---
H&P: HPI History of Present Illness Date/Time: 03/29/25 06:54 Chief Complaint: headache Narrative: 49-year-old male with hypertension, hyperlipidemia, transient atrial fibrillation in August 2019, obstructive sleep apnea intolerant to CPAP, morbid obesity, kidney stones, and gout who presented to the emergency department for headache. Patient states he was in his normal state of health yesterday morning, ate breakfast as usual. Around lunchtime he developed sudden onset of a severe frontal headache, throbbing in nature associated with nausea. States he could not eat due to symptoms. Subsequently had several episodes of nonbloody emesis. He attempted to take Excedrin migraine with no relief. He presented to the emergency department with persistent symptoms. He received a migraine cocktail in the emergency department with significant improvement in his symptoms. He currently rates headache 1/10 in severity. Patient denies history of headaches or migraines. Denies any recent illness, trauma or medication changes. Denies associated fevers, chills, neck pain, photophobia/phonophobia, unilateral weakness, paresthesias, visual disturbances, chest pain, SOB. Of note, admit CT head did show old lacunar infarcts which patient was unaware of. Review of Systems Review of Systems: All systems reviewed & are unremarkable except as noted in HPI and below PMFSH Past Medical History Medical History (Updated 03/29/25 @ 10:07 by PRISCILLA Gallegos) History of CVA (cerebrovascular accident) Transient atrial fibrillation (08/2019) Morbid obesity Obstructive sleep apnea Gout Kidney stones Essential hypertension Mixed hyperlipidemia Surgical History Surgical History History of open reduction and internal fixation (ORIF) procedure Repair of jaw fracture. History of partial knee replacement Left. History of lithotripsy History of ureter stent History of cystoscopy Family History Family History Mother Diabetes mellitus Family history of coronary artery disease Father Diabetes mellitus Family history of chronic obstructive pulmonary disease Family history of emphysema Sibling Lung cancer Social History Social History Social History: Surrogate medical decision maker: Kirstin Leonel, spouse. Code status: Full code. Smoking status: Never smoker Second hand tobacco smoke exposure: No Alcohol intake: never Substance use: never Substance use type: does not use Do You Feel Safe in your Home?: Yes Lack of Transportation: No Lack of Food: Never True Current Housing: I Have Housing Concerned About Future Housing: No Difficulty Paying Gas/Electric Bills: No Difficulty Paying for Meds: No Currently Unemployed: No Education: High School Diploma/GED Difficulty w/ Childcare or Family Care: No Living arrangements: with family Additional living arrangements comments: Lives with spouse in [place]. 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 Spiritual care concerns: No Meds Home Medications and Allergies Home Medications ?Medication ?Instructions ?Recorded ?Confirmed ?Type apixaban 5 mg tablet (Eliquis) 5 mg PO Q12HR #60 tabs 03/21/24 03/29/25 Rx sacubitril 24 mg-valsartan 26 mg 1 tablet PO Q12HR #60 tabs 03/21/24 03/29/25 Rx tablet (Entresto) flecainide 100 mg tablet 100 mg PO Q12H 05/17/24 03/29/25 History allopurinol 100 mg tablet See Rx Instructions .Route 01/14/25 03/29/25 Rx .COMPLEX #180 tabs carvedilol 3.125 mg tablet 3.125 mg PO DAILY 03/29/25 03/29/25 History Allergies Allergy/AdvReac Type Severity Reaction Status Date / Time hydrocodone AdvReac Unknown vomiting Verified 03/29/25 01:54 Vital Signs Vital Signs - 24 hr 03/28/25 19:57 03/28/25 20:00 03/29/25 00:20 Temperature 96.5 F L 98.2 F Pulse Rate 86 86 85 Respiratory Rate 20 20 16 Blood Pressure 160/98 H 160/98 H 167/85 H Pulse Oximetry 100 100 96 Oxygen Delivery Room Air 03/29/25 04:00 03/29/25 06:00 Temperature 97.8 F Pulse Rate 85 83 Respiratory Rate 18 Blood Pressure 148/74 H Pulse Oximetry 95 Oxygen Delivery Exam Narrative: General: NAD Eyes: EOMI ENT: neck supple Cardiovascular: Regular rate and rhythm Respiratory: Clear to auscultation, respirations even and unlabored on RA Gastrointestinal: Soft, non tender Genitourinary: no suprapubic tenderness Musculoskeletal: No edema Skin: warm, dry Neuro: Alert and oriented x4. Cranial nerves II-XII intact. Face symmetric. Speech clear. Strength 5/5 in BUEs/BLEs. Sensation to light touch intact face, BUE/BLEs. No dysmetria BUE/BLEs. Psych: Mood appropriate H&P: Results Labs Labs: Short CBC 03/28/25 Range/Units 20:25 WBC 15.4 H (4.5-10.0) K/mm3 Hgb 17.3 (14.0-18.0) g/dL Hct 52.8 H (42.0-52.0) % Plt Count 283 (150-375) k/mm3 BMP 03/28/25 20:25 Sodium 137 Potassium 4.7 Chloride 98 Carbon Dioxide 27 BUN 16 Creatinine 0.81 Glucose 152 H Calcium 9.6 Liver Function 03/28/25 Range/Units 20:25 Total Bilirubin 1.0 (0.2-1.3) mg/dL AST 46 (17-59) U/L ALT 66 H (6-50) U/L Alkaline Phosphatase 93 (38-126) U/L Albumin 4.6 (3.5-5.1) g/dL Assessment and Plan Assessment and plan (1) Headache: Qualifiers: Headache chronicity pattern: acute headache Headache type: unspecified Intractability: intractable Qualified Code(s): R51.9 - Headache, unspecified Code(s): R51.9 - Headache, unspecified Status: Acute Assessment and Plan: -presented with sudden onset, severe frontal headache. No prior history of headaches or migraines. No trauma. - CT head with old lacunar infarcts at the bilateral basal ganglia - CTA head and neck with no stenosis or LVO -admit WBC 15 (improved), afebrile, mildly hypertensive -no focal neuro deficits. No meningeal signs. Headache greatly improved with migraine cocktail and IV fluids. -MRI brain pending -LP initially ordered. Discussed with radiologist electronic systems security assessment -patient's Eliquis will need to be on hold for 48 hours, last dose 03/28 AM. If patient's symptoms continue to improve, LP may not be warranted. -continue neuro checks -neurology consulted, but not available today (2) Paroxysmal atrial fibrillation: Code(s): I48.0 - Paroxysmal atrial fibrillation Status: Acute Assessment and Plan: - admit EKG NSR with first-degree AV block - per discussion with radiology, Eliquis needs to be on hold for 48 hours for possible LP - continue carvedilol and flecainide (3) Obstructive sleep apnea: Code(s): G47.33 - Obstructive sleep apnea (adult) (pediatric) Status: Acute Assessment and Plan: -intolerant to CPAP -recommend patient follow-up as outpatient discuss alternative interventions as uncontrolled sleep apnea could contribute to headaches (4) Cardiomyopathy: Code(s): I42.9 - Cardiomyopathy, unspecified Status: Acute Assessment and Plan: -echo 03/2024 with EF 40-45% -continue home Entresto, BB (5) History of CVA (cerebrovascular accident): Code(s): Z86.73 - Personal history of transient ischemic attack (TIA), and cerebral infarction without residual deficits Status: Acute Assessment and Plan: - admit CT head with old lacunar infarcts -patient denies history of stroke-like symptoms, unaware of his findings -continue home Eliquis, start statin -consider outpatient neurology consultation (6) Idiopathic gout of multiple sites: Code(s): M10.09 - Idiopathic gout, multiple sites Status: Chronic Assessment and Plan: - continue home allopurinol Plan CODE STATUS: full, confirmed on admission Quality If No VTE Prophylaxis Answer both mechanical and pharmacologic: Reason no mechanical VTE proph: low risk/not indicated Hospitalist MIPS Advance Care Plan I have confirmed that the patient's Advanced Care Plan is present, code status is documented, or surrogate decision maker is listed in patient medical record.: Yes Medication Reconciliation I have utilized all available resources to obtain, update and review the patients current medications (includes all prescriptions, OTC, herbals, cannabis, and nutritional supplements).: Yes The patient is not eligible for med reconciliation; the patient is in a emergent medical situation where delaying treatment would jeopardize the patients health.: No
[2025-03-29 07:11] LABS: Alanine Aminotransferase 60 U/L (6-50); Albumin Level 4.4 g/dL (3.5-5.1); Alkaline Phosphatase 80 U/L (38-126); Anion Gap 8 mmol/L (4-12); Aspartate Amino Transferase 36 U/L (17-59); Bilirubin,Total 0.9 mg/dL (0.2-1.3); Blood Urea Nitrogen 12 mg/dL (9-20); Calcium 9.3 mg/dL (8.4-10.2); Carbon Dioxide 27 mmol/L (22-30); Chloride 102 mmol/L (98-107); Estimated CRCL calculation 157 ml/min; Estimated Glomerular Filt Rate > 60; Glucose 133 mg/dL (65-110); Magnesium 2.1 mg/dL (1.6-2.3); Potassium 4.7 mmol/L (3.4-5.0); Sodium 137 mmol/L (137-145); Total Protein 7.4 g/dL (6.3-8.2)
--- NOTE | 2025-03-29 09:33 | PM.EVENT ---
Event Note Event Note Event Note: called to eval patient for LP acute MURPHY onset, w/emesis. ?papilledema - no documentation of such. AF, WBC 11.2 this am w L shift Eliquis - last dose 03/28/25 in am. MRI pending today. Clinically, MURPHY much improved w hydration. Await 48h off Eliquis, prior to intervention Await MRI Further pending results. d/w PRISCILLA Pina
[2025-03-29] MEDS: SACUBITRIL/VALSARTAN 24-26 MG TABLET 1 TAB PO ×2 (10:38→20:50)
[2025-03-29] MEDS: FLECAINIDE ACETATE 100 MG TABLET PO ×2 (10:41→20:50)
[2025-03-29] MEDS: KETOROLAC 15 MG/ML VIAL (*BKC) IV PUSH (12:21)
[2025-03-29] MEDS: VALPROATE SODIUM INJ 500 MG in DEXTROSE 5% IN WATER 50 ML 110 MG IVPB ×2 (16:00→23:48)
[2025-03-29 16:19] LABS: Procalcitonin 0.0 ng/mL
[2025-03-29] MEDS: MAGNESIUM SULF 2 GM/WATER 50ML 2 GM/50 ML BAG IVPB (17:01)
[2025-03-30] VITALS (8 sets, daily range): BP systolic 107–128; BP diastolic 61–66; PULSE 73–95; RESP 18; TEMP 36.6–36.7; O2SAT 96–98
[2025-03-30 06:38] LABS: Hematocrit 49.5 % (42.0-52.0); Hemoglobin 15.8 g/dL (14.0-18.0); Immature Granulocyte Percent A 0.7 % (0-0.5); Lymphocytes Absolute Auto 1.89 K/mm3 (0.9-3.2); Mean Corpuscular HGB Conc 31.9 g/dl (32-36); Mean Corpuscular Hemoglobin 28.9 pg (26-34); Mean Corpuscular Volume 90.5 fl (80-100); Nucleated Red Blood Cells Absolute Auto 0.000 K/mm3 (0.0-0.012); Nucleated Red Blood Cells Perc 0.0 % (0.0-0.2); Platelet Count Result 247 k/mm3 (150-375); Red Blood Count 5.47 M/mm3 (4.6-6.20); White Blood Count 12.1 K/mm3 (4.5-10.0)
[2025-03-30] MEDS: VALPROATE SODIUM INJ 500 MG in DEXTROSE 5% IN WATER 50 ML 110 MG IVPB (06:41)
[2025-03-30 07:17] LABS: Hemoglobin A1C 5.7 % (<5.7)
[2025-03-30] MEDS: traMADol HCL (*CRX) 50 MG TABLET PO ×2 (09:02→14:36)
[2025-03-30] MEDS: FLECAINIDE ACETATE 100 MG TABLET PO (09:03)
[2025-03-30] MEDS: ATORVASTATIN 40 MG TABLET PO (09:03)
[2025-03-30] MEDS: SACUBITRIL/VALSARTAN 24-26 MG TABLET 1 TAB PO (09:03)
--- NOTE | 2025-03-30 09:55 | P.DS_ITS ---
DS: Admitting Diagnosis Discharge Date 03/30/25 Admitting Diagnosis - Headache - paroxysmal atrial fibrillation - History of CVA -gout - essential hypertension DS: Discharge Diagnosis Discharge Diagnosis (1) Headache: Qualifiers: Headache chronicity pattern: acute headache Headache type: unspecified Intractability: intractable Qualified Code(s): R51.9 - Headache, unspecified Code(s): R51.9 - Headache, unspecified Status: Acute (2) Paroxysmal atrial fibrillation: Code(s): I48.0 - Paroxysmal atrial fibrillation Status: Acute (3) Obstructive sleep apnea: Code(s): G47.33 - Obstructive sleep apnea (adult) (pediatric) Status: Acute (4) Cardiomyopathy: Code(s): I42.9 - Cardiomyopathy, unspecified Status: Acute (5) History of CVA (cerebrovascular accident): Code(s): Z86.73 - Personal history of transient ischemic attack (TIA), and cerebral infarction without residual deficits Status: Acute (6) Idiopathic gout of multiple sites: Code(s): M10.09 - Idiopathic gout, multiple sites Status: Chronic (7) Hypertension: Code(s): I10 - Essential (primary) hypertension Status: Acute DS: Summary Hospital Course Reason for hospitalization: - intractable headache Hospital Course: 49-year-old male with hypertension, hyperlipidemia, PAF, obstructive sleep apnea intolerant to CPAP, morbid obesity, kidney stones, and gout who presented to the emergency department for headache. The patient was admitted for intractable symptoms. Denied previous history of headaches or migraines. CT head with small old lacunar infarcts at the bilateral basal ganglia. No acute intracranial process. MRI brain Multiple nodular T2 hyperintense foci within the subcortical white matter, which can be associated with migraines but are nonspecific. Alt ernatively, these can also represent early chronic small vessel ischemic changes. LP was initially ordered due to leukocytosis and sudden onset of symptoms. Patient's symptoms completely resolved with multiple migraine cocktails and Depcaon x3 doses. Suspect symptoms were related to migraine. After discussion with interventional radiology and neurology, it was determined that LP was no longer indicated as patient remained afebrile, without meningeal signs and headache resolved. Leukocytosis improved. WBC 12 on discharge likely due to receiving steroids. Neurology followed and recommended repeat CBC in 48 hours and follow-up as outpatient. Neurology cleared for discharge. Due to CT head showing old lacunar infarcts as well as elevated triglyceride levels, patient was started on atorvastatin. Patient to continue Eliquis for stroke prevention in setting of Afib history. Patient's BP was mildly elevated while admitted. He was encouraged to continue Entresto and Coreg, keep a BP log and follow-up with his PCP. Patient is noncompliant with CPAP and was instructed to follow-up regarding his KALYAN as this could be contributing to migraines. Patient was discharged home in stable condition. Strict return precautions discussed. Status at Discharge Functional status at discharge: independent ambulation Time Spent with Patient Time attestation: Total time spent providing and/or coordinating discharge services: Time spent: Greater than 30 minutes Exam Narrative: General: NAD, nontoxic Eyes: EOMI ENT: neck supple Cardiovascular: Regular rate and rhythm Respiratory: Clear to auscultation, respirations even and unlabored on RA Gastrointestinal: Soft, non tender Genitourinary: no suprapubic tenderness Musculoskeletal: No edema Skin: warm, dry Neuro: Alert and oriented x4. Face symmetric. Speech clear. Psych: Mood appropriate DS: Data Data Completed and Pending Completed studies during hospitalization: CT head MRI brain Labs on day of discharge: Labs from last 24 hours 03/30/25 03/29/25 05:49 06:13 WBC 12.1 H RBC 5.47 Hgb 15.8 Hct 49.5 MCV 90.5 MCH 28.9 MCHC 31.9 L RDW 13.4 Plt Count 247 MPV 9.3 Immature Gran % (Auto) 0.7 H Neut % (Auto) 75.6 H Lymph % (Auto) 15.6 L [place] % (Auto) 7.8 Eos % (Auto) 0.1 Baso % (Auto) 0.2 Lymph # (Auto) 1.89 [place] # (Auto) 1.0 H Eos # (Auto) 0.0 Baso # (Auto) 0.0 Abs Immat Gran (auto) 0.08 H Absolute Neuts (auto) 9.2 H Absolute Nucleated RBC 0.000 Nucleated RBC % 0.0 Hemoglobin A1c 5.7 Procalcitonin 0.0 Discharge Plan Discharge Attending physician on discharge: Yanni Wells Consulting providers: Rylee Chandra; Sj North Discharging Clinician: Rylee Chandra Anticipated Discharge Date/Time: 03/30/25 09:46 Patient Disposition: Home Activity: as tolerated Diet: regular, low sodium, low cholesterol and low fat Discharge Instructions: While in the hospital, you were diagnosed with a probable migraine. This could be due to untreated sleep apnea. Please work on lifestyle modifications to aid in weight loss which will help with sleep apnea and elevated blood pressures. You have been started on Lipitor (atorvastatin) due to possible strokes found on imaging and elevated triglyceride levels. Please see provided information regarding side effects. Take all medications as prescribed. Check your blood pressure daily and keep a log to bring to follow-up appointments. Please have your lab work rechecked on Tuesday. Follow-up with your primary care provider in one week. Follow-up with neurology, call for an appointment. Return to the emergency department if you develop chest pain, shortness of breath, persistent fever >100.4, severe headache, confusion, loss of consciousness. Patient Instructions: Atorvastatin (By mouth), Sleep Apnea (GEN), Migraine Headache (ED), Hyperlipidemia (DC), Stroke (GEN), Blood Thinners (GEN), Stroke Prevention (GEN) Patient Language: Luxembourger Stand Alone Forms: General Discharge Information Follow-up/Referrals: Sj North MD [Physician] - Call for Appointment Andrea Moreno MD [Primary Care Provider] - Call for Appointment (Follow-up within 1 week. ) Discharge Medications: New atorvastatin 40 mg Tablet 40 mg PO DAILY Qty: 30 0RF Continued flecainide 100 mg tablet 100 mg PO Q12H Eliquis 5 mg Tablet 5 mg PO Q12HR Qty: 60 1RF Entresto 24-26 mg Tablet 1 tablet PO Q12HR Qty: 60 1RF carvedilol 3.125 mg tablet 3.125 mg PO DAILY tramadol 50 mg tablet 50 mg PO Q6H PRN (Reason: right shoulder pain) allopurinol 100 mg tablet See Rx Instructions .ROUTE .COMPLEX Qty: 180 0RF Dose Instruction: TAKE 1 TABLET BY MOUTH TWICE A DAY Rx Instructions: TAKE 1 TABLET BY MOUTH TWICE A DAY Other Ambulatory Orders: Complete Blood Count with Diff (Routine) Timeframe: 2 Days Location: Determined by Patient Ordered By: Rylee Chandra Date of admission: 03/28/25 22:12 Primary Care Provider: Andrea Moreno Admitting Provider: Elena Rangel Attending physician on admission: Elena Rangel Condition: Stable
--- NOTE | 2025-03-30 10:49 | PM.EVENT ---
Event Note Event Note Event Note: MRI w microvascular ischemic disease only. MURPHY completely gone as per RN notes this am Communication w Dr North noted - LP cancelled and pt to f/u w Neurology as outpatient.
--- NOTE | 2025-03-30 16:52 | WPDNEURCNPN ---
Assessment and Plan Assessment and plan (1) Headache: Qualifiers: Headache chronicity pattern: acute headache Headache type: unspecified Intractability: intractable Qualified Code(s): R51.9 - Headache, unspecified Code(s): R51.9 - Headache, unspecified Status: Acute (2) Essential hypertension: Code(s): I10 - Essential (primary) hypertension Status: Acute (3) Paroxysmal atrial fibrillation: Code(s): I48.0 - Paroxysmal atrial fibrillation Status: Acute (4) Morbid obesity: Code(s): E66.01 - Morbid (severe) obesity due to excess calories Status: Acute Plan Etiology for his headache is unclear he has not had any febrile illness. White cell count was slightly high on admission at 15.4 and now down to 12.1. He does not have any nuchal rigidity. Kernig sign is also negative. He has been afebrile. His symptoms have completely resolved. Based upon his condition with her decided to defer spinal tap and performed a CBC on Tuesday morning and his contact my office or his family physician Dr. Negro regarding this. During the interim however she should keep an eye the temperature and blood pressure and if there is any recurrence of symptoms or any other new symptoms he should be brought back to emergency room right away. The patient and his like this arrangement. I shall be glad to follow up. Consult date: 03/30/25 HPI: John Castaneda is a 50 year old male Who presented to the hospital 2 days ago with sudden onset of headache around 430 in the afternoon. The pain was mostly in the frontotemporal area and was associated not feeling well. According to his he is pale he is brought to the hospital his blood pressure slightly high however he does not suffer from chronic headache. CT scan of brain and MRI of the brain has been been performed and have not shown any significant abnormalities. CT angiogram head and neck was also performed which shows no significant findings. Patient has history of atrial fibrillation and he is on anticoagulation. The nocturnal [place] and had discussed with me regarding the situation and we discussed that today if necessary a spinal tap could become performed but he will need to be off anticoagulation. This morning the nursing staff called me if he needed a spinal tap. His headache is completely gone with the treatment given in the last 2 days however his white cell count still slightly high at 12.2 and hence the concern. And has not had any rash. He has not had any febrile illness. Patient denies any fall or injuries. At this time is asymptomatic. Review of Systems Review of Systems: All systems reviewed & are unremarkable except as noted in HPI and below [facility] Past Medical History Medical History (Updated 03/30/25 @ 15:56 by PRISCILLA Gallegos) Hypertension History of CVA (cerebrovascular accident) Transient atrial fibrillation (08/2019) Morbid obesity Obstructive sleep apnea Gout Kidney stones Essential hypertension Mixed hyperlipidemia Surgical History Surgical History History of open reduction and internal fixation (ORIF) procedure Repair of jaw fracture. History of partial knee replacement Left. History of lithotripsy History of ureter stent History of cystoscopy Family History Family History Mother Diabetes mellitus Family history of coronary artery disease Father Diabetes mellitus Family history of chronic obstructive pulmonary disease Family history of emphysema Sibling Lung cancer Social History Social History Social History: Surrogate medical decision maker: Kirstin Castaneda, spouse. Code status: Full code. Smoking status: Never smoker Second hand tobacco smoke exposure: No Alcohol intake: never Substance use: never Substance use type: does not use Do You Feel Safe in your Home?: Yes Lack of Transportation: No Lack of Food: Never True Current Housing: I Have Housing Concerned About Future Housing: No Difficulty Paying Gas/Electric Bills: No Difficulty Paying for Meds: No Currently Unemployed: No Education: High School Diploma/GED Difficulty w/ Childcare or Family Care: No Living arrangements: with family Additional living arrangements comments: Lives with spouse in [place]. 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 Spiritual care concerns: No Meds Home Medications and Allergies Home Medications ?Medication ?Instructions ?Recorded ?Confirmed ?Type apixaban 5 mg tablet (Eliquis) 5 mg PO Q12HR #60 tabs 03/21/24 03/29/25 Rx sacubitril 24 mg-valsartan 26 mg 1 tablet PO Q12HR #60 tabs 03/21/24 03/29/25 Rx tablet (Entresto) flecainide 100 mg tablet 100 mg PO Q12H 05/17/24 03/29/25 History allopurinol 100 mg tablet See Rx Instructions .Route 01/14/25 03/29/25 Rx .COMPLEX #180 tabs carvedilol 3.125 mg tablet 3.125 mg PO DAILY 03/29/25 03/29/25 History atorvastatin 40 mg tablet 40 mg PO DAILY #30 tabs 03/30/25 Rx tramadol 50 mg tablet 50 mg PO Q6H PRN right shoulder 03/30/25 03/30/25 History pain Allergies Allergy/AdvReac Type Severity Reaction Status Date / Time hydrocodone AdvReac Unknown vomiting Verified 03/29/25 01:54 Vital Signs Vital Signs - 24 hr 03/29/25 20:00 03/29/25 20:00 03/29/25 21:00 Temperature 97.4 F L Pulse Rate 89 86 Respiratory Rate 16 Blood Pressure 122/67 Pulse Oximetry 96 Oxygen Delivery Room Air 03/29/25 22:14 03/30/25 00:00 03/30/25 04:00 Temperature Pulse Rate 75 95 Respiratory Rate Blood Pressure Pulse Oximetry 96 Oxygen Delivery Room Air 03/30/25 05:35 03/30/25 08:00 03/30/25 09:03 Temperature 98.1 F Pulse Rate 78 86 90 Respiratory Rate 18 Blood Pressure 107/66 Pulse Oximetry 98 Oxygen Delivery 03/30/25 09:03 03/30/25 09:04 03/30/25 12:00 Temperature Pulse Rate 90 73 Respiratory Rate Blood Pressure Pulse Oximetry Oxygen Delivery Room Air 03/30/25 14:00 Temperature 97.8 F Pulse Rate 86 Respiratory Rate 18 Blood Pressure 128/61 Pulse Oximetry 96 Oxygen Delivery Exam Const: General: cooperative, well developed and alert Orientation/consciousness: oriented to person, oriented to place, oriented to time and patient oriented x3 HENMT: Head: atraumatic Mouth: Yes oropharynx normal Eyes: Alignment and Position: position normal Pupils: Equal, round and reactive pupils present EOM: EOMs intact bilaterally Neck: Neck: supple Other: No nuchal rigidity. Resp: Effort & Inspection: normal respiratory effort Skin: General skin exam: normal color Neuro: General: oriented to person, oriented to place, oriented to time and Unable to assess gait Cranial nerves: Yes CN's II-XII intact bilaterally, Yes facial sensation intact/muscles of mastication intact, Yes Equal, round and reactive pupils present, Yes Bilaterally intact EOM present, Yes Nystagmus not present, Yes facial symmetry, Yes Midline tongue present, Yes Symmetric palate elevation present and Yes Ability to bilaterally elevate shoulders present Cognition (Neuro): normal cognition Speech: normal speech Motor exam (neuro): 5/5 motor strength present throughout, Normal motor muscle tone present throughout and Motor abnormalities not present Sensory Exam: normal sensation Coordination: [id number] test normal and Normal rapid alternating movements of the distal upper extremity present (Neuro) Psych: Mental Status: mental status grossly normal Affect: normal affect Results Labs 03/30/25 05:49 03/29/25 06:13 Labs: Short CBC 03/30/25 Range/Units 05:49 WBC 12.1 H (4.5-10.0) K/mm3 Hgb 15.8 (14.0-18.0) g/dL Hct 49.5 (42.0-52.0) % Plt Count 247 (150-375) k/mm3
== END 2025-03-30 16:10 | disposition home or self-care (01) ==
LOC: ANHED 22:09 → ANH3MEDSUR 03-29 01:15
PROVIDERS: Physician Assistant; Student in an Organized Health Care Education/Training Program; Admitting Provider General Practice; Emergency Provider Emergency Medicine; PCP Family Medicine; Visit Provider Internal Medicine
DX: R51.9 Headache, unspecified (principal); I48.0 Paroxysmal atrial fibrillation; I42.9 Cardiomyopathy, unspecified; I10 Essential (primary) hypertension; G47.33 Obstructive sleep apnea (adult) (pediatric); M10.09 Idiopathic gout, multiple sites; E78.2 Mixed hyperlipidemia; E66.01 Morbid (severe) obesity due to excess calories; Z68.41 Body mass index [BMI] 40.0-44.9, adult; Z79.01 Long term (current) use of anticoagulants; Z79.899 Other long term (current) drug therapy; Z86.73 Personal history of transient ischemic attack (TIA), and cerebral infarction without residual deficits; Z87.442 Personal history of urinary calculi; Z91.199 Patient's noncompliance with other medical treatment and regimen due to unspecified reason; Z96.652 Presence of left artificial knee joint
CPT/HCPCS: 36415; 62328; 70450; 70496; 70498; 70551; 80053; 83036; 83735; 84145; 85025; 85610; 85730; 93005; 96361; 96365; 96367; 96375; 96376; 99285; A9270; G0378; J0780; J1100; J1200; J1885; J2405; J2765; J3475; J7030; Q9967